=== PATIENT | male | born 1970 | race Caucasian/White ===

== ENCOUNTER 2017-01-04 22:45 | Emergency (ER) | payer OTHER ==
[~2017-01-04 22:45] MED LIST: HYDR-971 PO; KETO10TA PO; ONDA4TAB10 PO; TAMS0.4C97 PO
[2017-01-04 22:50] VITALS: BP 152/97
[2017-01-04] MEDS ORDERED: HYDR-2758 PO (23:12)
[2017-01-04] MEDS ORDERED: NAPR500T PO (23:12)
[2017-01-04] MEDS ORDERED: CIPR10DR AD (23:12)
--- NOTE | 2017-01-04 23:13 | PHYS DOC ---
Past History Past Medical History: Cancer, High Cholesterol, Hypertension, Migraines Past Surgical History: Other Alcohol Use: None Drug Use: None Adult General Chief Complaint Chief Complaint: ear pain HPI HPI Patient is a pleasant 46-year-old male who is sitting in a movie tonight feeling some dull throbbing pain in his ear when he yawned he felt a searing pain without loss of hearing. He had nasal congestion 3-4 days prior to this event occurring has had no fullness but has had pain in the ear is worse with laying on the ear. He denies any fevers, chills, hearing loss, tinnitus, dental pain, sore throat, cough or rash. Patient take showers and does not swim or take long baths. he was using a Q-tip tonight when he pulled out a great deal of debris and bleeding tissue. Review of Systems Review of Systems Constitutional: Denies fever or chills [] Eyes: Denies change in visual acuity, redness, or eye pain [] HENT: Patient did have some nasal congestion several days ago without sore throat Respiratory: Denies cough or shortness of breath [] Cardiovascular: No additional information not addressed in HPI [] GI: Denies abdominal pain, nausea, vomiting, bloody stools or diarrhea [] : Denies dysuria or hematuria [] Musculoskeletal: Denies back pain or joint pain [] Integument: Denies rash or skin lesions [] Neurologic: Denies headache, focal weakness or sensory changes [] All other systems were reviewed and found to be within normal limits, except as documented in this note. Allergies Allergies Allergies Coded Allergies Type Severity Reaction Last Updated Verified No Known Drug Allergies 02/19/16 No Physical Exam Physical Exam Patient's vital signs show signs of hypertension Constitutional: Well developed, well nourished, no acute distress, non-toxic appearance. [] HENT: Normocephalic, atraumatic, bilateral external ears normal, oropharynx moist, no oral exudates, nose normal. Patient has mild tenderness to palpation of the tragus on the right in the external canal there is erythema with mild areas of swollen tissue with some breathing noted on the inner portion of the canal.[] Eyes: PERRLA, EOMI, conjunctiva normal, no discharge. [] Neck: Normal range of motion, no tenderness, supple, no stridor. [] Skin: Warm, dry, no erythema, no rash. [] ] Neurologic: Alert and oriented X 3, normal motor function, normal sensory function, no focal deficits noted. [] Psychologic: Affect normal, judgement normal, mood normal. [] EKG EKG [] Radiology/Procedures Radiology/Procedures [] Course & Med Decision Making Course & Med Decision Making Pertinent Labs and Imaging studies reviewed. (See chart for details) Patient has otitis externa of the right ear with some mild bleeding secondary to tissue being destroyed secondary to Q-tip usage. Patient has intact TM no evidence of otitis media no evidence of rash on the face doubt herpes ophthalmicus. Oropharynx is clear [] Dragon Disclaimer Dragon Disclaimer This electronic medical record was generated, in whole or in part, using a voice recognition dictation system. Departure Departure: Impression: Primary Impression: Otitis externa Disposition: HOME, SELF-CARE Condition: IMPROVED Referrals: SCOTT LAZCANO (PCP) Patient Instructions: Otitis Externa Additional Instructions: discharge: I've spoken with the patient and/or caregivers. I've explained the patient's condition, diagnosis and treatment plan based on information available to me at this time. I've answered the patient's and/or caregivers questions and addressed any concerns. The patient and/or caregivers have a good understanding the patient's diagnosis, condition and treatment plan as can be expected at this point. Vital signs have been stabilized. The patient's condition is stable for discharge from the emergency department. The patient will pursue further outpatient evaluation with her primary care provider or other designated consulting physician as outlined in the discharge instructions. Patient and/or caregivers are agreeable to this plan of care and follow-up instructions have been explained in detail. The patient and/or caregivers have received these instructions in written format and expressed understanding of these discharge instructions. The patient and her caregivers are aware that if any significant change in condition or worsening of symptoms should prompt him to immediately return to this of the closest emergency department. If an emergent department is not readily available I would encourage him to call 911. Scripts Hydrocodone Bit/Acetaminophen (HYDROCODONE-APAP 5-325 ) 1 Each Tablet 1 TAB PO PRN Q6HRS Y for PAIN for 7 Days, #14 TAB 0 Refills Prov: LACEY SIMEON MD 01/04/17 Naproxen (NAPROSYN) 500 Mg Tablet 1 TAB PO BID, #20 TAB 1 Refill Prov: LACEY SIMEON MD 01/04/17 Ciprofloxacin/Hydrocortisone (CIPRO HC OTIC SUSPENSION) 10 Ml Drops.susp 3 DROP AD TID for 5 Days, #10 ML Prov: LACEY SIMEON MD 01/04/17 LACEY SIMEON MD Jan 04, 2017 23:12
[2017-01-04] MEDS ORDERED: HYDROcodone/APAP 5/325MG 1 TAB TABLET PO ONE (23:30)
== END 2017-01-04 23:15 | disposition home or self-care (01) ==
LOC: ER 22:45
DX: H60.91 Unspecified otitis externa, right ear (principal); E78.00 Pure hypercholesterolemia, unspecified; I10 Essential (primary) hypertension; G43.909 Migraine, unspecified, not intractable, without status migrainosus
CPT/HCPCS: 99283

== ENCOUNTER 2017-02-23 16:22 | Emergency (ER) | payer OTHER ==
[~2017-02-23 16:22] MED LIST changes: +CIPR10DR AD; +HYDR-2758 PO; +NAPR-683 PO
[2017-02-23 16:36] VITALS: BP 153/98
--- NOTE | 2017-02-23 16:57 | PHYS DOC ---
Past History Past Medical History: No Pertinent History Past Surgical History: No Surgical History Alcohol Use: Occasionally Drug Use: None Adult General Chief Complaint Chief Complaint: FLANK PAIN HPI HPI Patient is a 47-year-old man who presents ambulatory to the ED with the complaint of right flank pain which started yesterday evening. Patient had a kidney stone last year on the left side, and the pain reminds him of that little bit, and he said he might be a little paranoid because of that experience. Patient noted the pain last evening. He did do some back exercises at the gym and wondered if it could be that. He took some Advil PM last night and the pain did not keep him up. During the day today, he has had episodes where he will be sitting or doing something and the pain will worsen for just a few seconds and then get better again. He has not taken anything at all for the pain today, it hasn't been that bad. He's been drinking plenty of fluids. Denies hematuria or dysuria. Denies vomiting. He has noted that certain movements will make the pain worse. Denies cough or shortness of breath. Review of Systems Review of Systems Constitutional: Denies fever or chills [] Respiratory: Denies cough or shortness of breath [] GI: Denies abdominal pain, nausea, vomiting, bloody stools or diarrhea [] : Denies dysuria or hematuria [] Musculoskeletal: As in history of present illness Allergies Allergies Allergies Coded Allergies Type Severity Reaction Last Updated Verified No Known Drug Allergies 02/19/16 No Physical Exam Physical Exam Constitutional: Well developed, well nourished, no acute distress, non-toxic appearance. Ambulatory, alert, appropriate, no acute distress. HENT: Normocephalic, atraumatic, bilateral external ears normal, nose normal. [ ] Eyes: conjunctiva normal, no discharge. [] Neck: Normal range of motion, no stridor. [] Cardiovascular:Heart rate regular rhythm, no murmur [] Lungs & Thorax: Bilateral breath sounds clear to auscultation [] Skin: Warm, dry, no erythema, no rash. [] Back: No skin lesions or discoloration. Right flank has no muscle spasm or tenderness. The area of pain that the patient indicates is somewhat lateral from the CVA. Extremities: No tenderness, no cyanosis, no clubbing, ROM intact, no edema. [] Neurologic: Alert and oriented X 3, normal motor function, no focal deficits noted. [] EKG EKG [] Radiology/Procedures Radiology/Procedures [] Course & Med Decision Making Course & Med Decision Making Pertinent Labs and Imaging studies reviewed. (See chart for details) Urinalysis dip in the emergency department, specific gravity 1010, dip is entirely negative including negative for blood. I reviewed the patient's record from his kidney stone last year. He had large blood in his urine at that time. I discussed with the patient and his . The pain to me does not seem exactly like kidney stone pain. It is exacerbated by certain movements. When it does worsen, it only worsens for a few seconds. He has not even taken any medication for it all day today, it has not been that severe. He has no blood in his urine and no dysuria. I offered the patient labs, CT scan of the abdomen and pelvis, to investigate whether or not this is kidney stone pain. I recommended at this time conservative treatment as likely musculoskeletal pain. The patient chose conservative treatment in light of his urine dip being negative for blood. Return precautions were given and I assured the patient that he can come back at any time if he has worsening symptoms or wants to investigate further. Patient is comfortable with the plan and stable for discharge. [] Dragon Disclaimer Dragon Disclaimer This electronic medical record was generated, in whole or in part, using a voice recognition dictation system. Departure Departure: Impression: Primary Impression: Right flank pain Additional Impression: Musculoskeletal back pain Disposition: 01 HOME, SELF-CARE Condition: STABLE Referrals: SCOTT LAZCANO (PCP) Patient Instructions: Back Pain, Adult, [id number] Additional Instructions: As we discussed, features of your pain make me think it is more likely to be musculoskeletal back pain and not likely to be kidney stone pain. There is no blood in your urine today. The pain can be worsened by position/ movement, which is not usual for her kidney stone pain. Take ibuprofen for pain. Use ice 15-20 minutes out of every 1-2 hours. Drink plenty of fluids. If your pain worsens, if things change, if you decide you want to have more evaluation for possible kidney stone, return to emergency department at any time. If not better in 3-5 days, see your doctor. Problem Qualifiers RUY TINAJERO MD Feb 23, 2017 16:57
== END 2017-02-23 16:59 | disposition home or self-care (01) ==
LOC: ER 16:22
DX: R10.9 Unspecified abdominal pain (principal); M54.89 Other dorsalgia; Z87.442 Personal history of urinary calculi
CPT/HCPCS: 99281

== ENCOUNTER 2017-02-26 09:06 | Emergency (ER) | payer OTHER ==
[~2017-02-26] VITALS: Ht 180.3 cm; Wt 102.1 kg
--- NOTE | 2017-02-26 09:26 | PHYS DOC ---
Past History Past Medical History: Hypertension, Kidney Stones, Migraines Past Surgical History: Other Alcohol Use: Occasionally Drug Use: None Adult General Chief Complaint Chief Complaint: BLOOD IN URINE HPI HPI Patient is a 47-year-old male presenting to the emergency department for evaluation of hematuria and left flank pain. He was seen on 12:30 for some right flank pain with urinalysis was negative and he was sent home on NSAIDs. He says the left flank pain is rather minimal but he started urinating blood earlier this morning and has tried drinking plenty of fluids and says it is still want in his urine. He says that he is urinating more often but it is not particularly painful and he denies any discharge from his penis. No fevers chills nausea vomiting or other systemic symptoms. He is in no obvious distress with normal vital signs. Review of Systems Review of Systems Constitutional: Denies fever or chills [] GI: Denies abdominal pain, nausea, vomiting, bloody stools or diarrhea [] : Denies dysuria. + hematuria [] Musculoskeletal: + back pain Neurologic: Denies headache, focal weakness or sensory changes [] All other systems were reviewed and found to be within normal limits, except as documented in this note. Allergies Allergies Allergies Coded Allergies Type Severity Reaction Last Updated Verified No Known Drug Allergies 02/19/16 No Physical Exam Physical Exam Constitutional: Well developed, well nourished, no acute distress, non-toxic appearance. [] Cardiovascular:Heart rate regular rhythm, no murmur [] Lungs & Thorax: Bilateral breath sounds clear to auscultation [] Abdomen: Bowel sounds normal, soft, no tenderness, no masses, no pulsatile masses. [] Back: + L CVA tenderness. [] Extremities: No tenderness, no cyanosis, no clubbing, ROM intact, no edema. [] Neurologic: Alert and oriented X 3, normal motor function, normal sensory function, no focal deficits noted. [] EKG EKG [] Radiology/Procedures Radiology/Procedures NDICATION: Flank pain COMPARISON: 02/19/2016 TECHNIQUE: Axial CT images were obtained through the abdomen and pelvis without intravenous contrast. FINDINGS: Linear opacities at lower lungs, could be from atelectasis. Abdominal aorta is not aneurysmal. Right greater than left fat-containing inguinal hernia. Liver appears mildly low attenuation. No peripancreatic edema. Splenic calcified granulomas. 2 mm calcification near left ureterovesicular junction as well as an adjacent 2 mm calcification likely within the bladder. Indentation of bladder base by the prostate. No periappendiceal inflammation. Small fat-containing umbilical hernia is suspected. Degenerative changes of spine. This includes at L4-5 or there is a disc osteophyte complex narrowing the central canal and neural foramina. IMPRESSION: 1. There is a tiny calcification near the expected location of the left ureterovesicular junction as well as a tiny calcification within the bladder dependently. Could be from a bladder stone and a left distal ureter stone. There is mild associated left-sided hydronephrosis and hydroureter. PQRS Compliance Statement: One or more of the following individualized dose reduction techniques were utilized for this examination: 1. Automated exposure control 2. Adjustment of the mA and/or kV according to patient size 3. Use of iterative reconstruction technique DICTATED AND SIGNED BY: RYDER SARKAR MD DATE: 02/26/17 1000 Course & Med Decision Making Course & Med Decision Making Patient with hematuria likely from cystitis or prostatitis. We'll check urinalysis labs CT stone protocol and reassess. Patient didn't have any signs of infection in his urine however he did appear to have a stone on his left UVJ. After the CT scan he went to the bathroom and urinated a stone and he says he has no further pain. Patient essentially has a past stone so recommend plenty of fluids PCP and urology follow-up and told to come back with any concerns. Patient aware and agreeable with plan and verbalized understanding of the above instructions. Dragon Disclaimer Dragon Disclaimer This electronic medical record was generated, in whole or in part, using a voice recognition dictation system. Departure Departure: Impression: Primary Impression: Ureter, calculus Additional Impression: Hematuria Disposition: HOME, SELF-CARE Condition: STABLE Referrals: SCOTT LAZCANO (PCP) Patient Instructions: Diet for Kidney Stones, Kidney Stones, [id number] Scripts Hydrocodone Bit/Acetaminophen (NORCO 5-325 TABLET) 1 Each Tablet 1 TAB PO PRN Q6HRS Y for PAIN, #10 TAB 0 Refills Prov: WILDER LUCIANO DO 02/26/17 Problem Qualifiers WILDER LUCIANO DO Feb 26, 2017 09:26
[2017-02-26 09:46] LABS: BASO % 1 % (0-3); EOS # 0.1 x10^3/uL (0.0-0.7); EOS % 2 % (0-3); HEMATOCRIT 43.1 % (39.0-53.0); LYMPH % 40 % (24-48); MEAN CORPUSCULAR HEMOGLOBIN 32 pg (25-35); MEAN CORPUSCULAR HGB CONC 35 g/dL (31-37); MEAN CORPUSCULAR VOLUME 91 fL (79-100); MONO # 0.4 x10^3/uL (0.0-1.1); MONO % 7 % (0-9); NEUT # 2.6 x10^3uL (1.8-7.7); NEUT % 51 % (31-73); PLATELET COUNT 208 x10^3/uL (140-400); RED BLOOD COUNT 4.71 x10^6/uL (4.30-5.70); RED CELL DISTRIBUTION WIDTH 12.5 % (11.5-14.5); WHITE BLOOD COUNT 5.1 x10^3/uL (4.0-11.0)
[2017-02-26 09:47] LABS: COLOR,URINE PINK
[2017-02-26 09:48] LABS: BACTERIA,URINE 0 /HPF (0-FEW); BILIRUBIN,URINE NEG (NEG); CLARITY,URINE BLOODY; GLUCOSE,URINE NEG (NEG); NITRITE,URINE NEG (NEG); RBC,URINE >40 /HPF (0-2); SQUAMOUS EPITHELIAL CELL,UR OCC /LPF; UROBILINOGEN,URINE 0.2 mg/dL (0.2 mg/dL); WBC,URINE OCC /HPF (0-4)
[2017-02-26 09:57] LABS: ALBUMIN 4.1 g/dL (3.4-5.0); ALBUMIN/GLOBULIN RATIO 1.1 (1.0-1.7); CALCIUM 9.1 mg/dL (8.5-10.1); CREATININE 1.2 mg/dL (0.7-1.3); GFR 64.9; POTASSIUM 3.9 mmol/L (3.5-5.1); TOTAL BILIRUBIN 0.5 mg/dL (0.2-1.0); TOTAL PROTEIN 7.8 g/dL (6.4-8.2)
--- NOTE | 2017-02-26 10:13 | RAD ---
INDICATION: Flank pain COMPARISON: 02/19/2016 TECHNIQUE: Axial CT images were obtained through the abdomen and pelvis without intravenous contrast. FINDINGS: Linear opacities at lower lungs, could be from atelectasis. Abdominal aorta is not aneurysmal. Right greater than left fat-containing inguinal hernia. Liver appears mildly low attenuation. No peripancreatic edema. Splenic calcified granulomas. 2 mm calcification near left ureterovesicular junction as well as an adjacent 2 mm calcification likely within the bladder. Indentation of bladder base by the prostate. No periappendiceal inflammation. Small fat-containing umbilical hernia is suspected. Degenerative changes of spine. This includes at L4-5 or there is a disc osteophyte complex narrowing the central canal and neural foramina. IMPRESSION: 1. There is a tiny calcification near the expected location of the left ureterovesicular junction as well as a tiny calcification within the bladder dependently. Could be from a bladder stone and a left distal ureter stone. There is mild associated left-sided hydronephrosis and hydroureter. PQRS Compliance Statement: One or more of the following individualized dose reduction techniques were utilized for this examination: 1. Automated exposure control 2. Adjustment of the mA and/or kV according to patient size 3. Use of iterative reconstruction technique
[2017-02-26] MEDS ORDERED: HYDR-971 PO (10:24)
[2017-02-26 10:30] VITALS: BP 143/103
== END 2017-02-26 10:35 | disposition home or self-care (01) ==
LOC: ER 09:06
DX: N20.1 Calculus of ureter (principal); R31.9 Hematuria, unspecified; I10 Essential (primary) hypertension; G43.909 Migraine, unspecified, not intractable, without status migrainosus; Z87.442 Personal history of urinary calculi
CPT/HCPCS: 36415; 74176; 80053; 81001; 82550; 85025; 99285-25